=== PATIENT | female | born 1980 ===

== ENCOUNTER → 2024-12-02 14:24 | Outpatient (ROUT) | payer OTHER, SELFPAY ==
[2024-12-02 15:23] LABS: Thyroid Stimulating Hormone 2.12 uIU/mL (0.47-4.68)
[2024-12-02 15:25] LABS: Testosterone 26.4 ng/dL (5.71-77.0)
[2024-12-02 15:28] LABS: Follicle Stimulating Hormone 3.95 mIU/mL; Progesterone, Total 6.86 ng/mL
[2024-12-06 10:36] LABS: Estrogen 364 pg/mL (.)
== END ==
PROVIDERS: Visit Provider Family Medicine
DX: N95.1 Menopausal and female climacteric states (principal)
CPT/HCPCS: 82672; 83001; 84144; 84403; 84443